=== PATIENT | female | born 1965 | race Caucasian/White ===

== ENCOUNTER 2024-04-26 17:35 | Inpatient (IN) | payer BC, SELFPAY ==
[2024-04-26 13:46] VITALS: BP 114/84
[2024-04-26 14:20] LABS: % Basophils 0.2 % (0-2); % Eosinophils 0.8 % (0-6); % Immature Granulocytes 0.3 % (0-0.5); % Lymphocytes 13.3 % (20.5-51.1); % Monocytes 9.6 % (1.7-9.3); % Neutrophils 75.8 % (42.2-75.2); Absolute Eosinophils 0.1 10^3/uL (0-0.7); Absolute Lymphocytes 1.8 10^3/uL (1.2-3.4); Absolute Monocytes 1.3 10^3/uL (0.1-0.6); Hematocrit 39.5 % (37.0-47.0); Mean Corp Hgb Conc. 32.9 g/dL (33.0-37.0); Mean Corpuscular Hgb 31.3 pg (27.0-31.0); Mean Platelet Volume 8.9 fL (7.4-10.4); Nucleated Red Blood Cells % 0 %; Platelet Count 345 10^3/uL (130-400); Red Blood Cell Count 4.16 10^6/uL (4.20-5.40); Red Cell Dist. Width 12.3 % (11.5-14.5); White Blood Cell Count 13.1 10^3/uL (4.8-10.8)
--- NOTE | 2024-04-26 14:37 | ED.GENMED ---
History of Present Illness
General
Chief Complaint: Abdominal Symptoms
Source: patient
Exam Limitations: none
Time Seen by Provider: 04/26/24 13:52
Nursing documentation reviewed up to this point in time: agreed with
History of Present Illness
History of Present Illness:
Patient is a 58-year-old female with history of microscopic colitis on chronic Imodium for chronic diarrhea presents to the ER now with constipation for the past week. She had intermittent constipation several weeks ago and used mag citrate at the
time which worked but recently over the past 1 week patient has not been able to move her bowels. She tried 2 fleets enemas however is now having increasing abdominal pain. In addition she reports for the past several days she has had a lot of
pain with urination. She reports it is just simple pain but does not feel like burning. It does not feel like UTI. Today she vomited was of brought her here to the ER she did 2 fleets enemas and does not feel like stools in the rectum. She
complains of feeling bloated and having a lot of abdominal discomfort.
Past History
Past History
ED Past Medical History: Other (Anxiety, IBS)
ED Past Surgical History: Cholecystectomy
Social History
Tobacco: Smoker
Alcohol: Occasional
Drug: None
Personal:
Living: with family
Employment: Employed
Family History
Family History: Other (Noncontributory)
Review of Systems
Review of Systems
Allergies reviewed?: Yes
All Other Systems: ROS reviewed and negative except as documented in HPI and ROS
Constitutional: Reports no symptoms; Denies fever, fatigue or chills
Respiratory: Reports no symptoms
Cardiac: Reports no symptoms
ABD/GI: Reports abdominal pain, nausea, vomiting and constipated
: Reports other (pain with urination ); Denies flank pain or urgency
Musculoskeletal: Reports no symptoms
Skin: Reports no symptoms
Neurological: Reports no symptoms
Psychiatric: Reports no symptoms
Phy Exam
General Physical Exam
General Presentation: no apparent distress
General age: appears stated age
General Skin: warm and dry
General Habitus: normal
General Mental: alert
General Hydration: appears well hydrated
Cardiovascular Exam
Cardiovascular Exam: regular rate/rhythm, no murmur and normal peripheral pulses
Gastrointestinal Exam
Gastrointestinal Exam: soft and other (Nonspecific abdominal tenderness)
Neurological Exam
Neurological Exam: alert and oriented x3
Musculoskeletal Exam
Musculoskeletal Exam: full ROM
Skin Exam
Skin Exam: normal color and warm/dry
Psychiatric Exam
Psychiatric Exam: normal mood/affect
Course
Orders/Labs/Results
Orders:
Orders
04/26/24 14:03
IV Insert/Care/Rem.- Treatment PRN
04/26/24 14:12
Complete Blood Count/With Diff Urgent
Comprehensive Metabolic Panel Urgent
Lipase Urgent
04/26/24 14:36
CT Abd/pelvis W Iv Cont Urgent
Comment:
Reason For Exam: abd pain /constipation /pain w/urination vomiting
04/26/24 15:24
0.9% Sodium Chloride 1000 ml [Nss] 1,000 ml IV BOLUS
04/26/24 15:41
Ketorolac [Toradol] 15 mg IV NOW STA
04/26/24 16:29
Urinalysis Reflex To Culture Urgent
Date Specimen was Collected: 04/26/24
Time Specimen was Collected: 14:04
Urine Microscopic Reflex Cult Urgent
04/26/24 16:53
Piperacillin/Tazo 3.375 Gram [Zosyn] 3.375 gram in 50 ml IV NOW
Abnormal Lab Results
04/26/24 04/26/24
14:12 16:29
WBC 13.1 H 10^3/uL
(4.8-10.8)
RBC 4.16 L 10^6/uL
(4.20-5.40)
MCH 31.3 H pg
(27.0-31.0)
MCHC 32.9 L g/dL
(33.0-37.0)
Absolute Neuts (auto) 10.0 H 10^3/uL
(1.4-6.5)
Absolute Monos (auto) 1.3 H 10^3/uL
(0.1-0.6)
Neutrophils % 75.8 H %
(42.2-75.2)
Lymphocytes % 13.3 L %
(20.5-51.1)
Monocytes % 9.6 H %
(1.7-9.3)
Creatinine 0.5 L mg/dL
(0.6-1.0)
Glucose 110 H mg/dl
(70-99)
Alkaline Phosphatase 151 H U/L
(38-126)
Urine Ketones 2+ A
(Negative)
Leukocyte Esterase Rfl Trace A
(Negative)
04/26/24 14:12
04/26/24 14:12
Vital Signs
Initial and Last Documented VS:
Initial Vital Signs
Temp Pulse Resp BP Pulse Ox
98.9 F 79 16 114/84 98
04/26/24 13:46 04/26/24 13:46 04/26/24 13:46 04/26/24 13:46 04/26/24 13:46
Last Documented Vital Signs
Temp Pulse Resp BP Pulse Ox
98.9 F 79 16 114/84 98
04/26/24 13:46 04/26/24 14:00 04/26/24 13:46 04/26/24 13:46 04/26/24 13:46
Tower Watchman consulted with Physician
Tower Watchman consulted with physician?: Yes
Name of Physician Consulted: Noh
MDM/Problems Addressed
Differential Diagnosis Includes:
Not limited to bowel obstruction, diverticulitis, UTI
MDM/Problems Addressed:
Patient is a 50-year-old female who presented with constipation and vomiting. Patient feels abdominal pain back pain also pain/pressure with urination that this does not feel like a UTI. Patient reports she has microscopic colitis and takes daily
Imodium. CAT scan done shows acute complicated sigmoid diverticulitis with adjacent small volume free air consistent with perforation. There is likely adjacent phlegmonous change without discrete abscess or collection
IV antibiotics ordered Pt was initially given Toradol I held off on narcotics because of constipation however she is back in discomfort will give 4 mg of morphine. Case reviewed with colorectal surgery, DR López .
Will admit for IV antibiotics patient is stable with stable vital signs. No fever white count minimally elevated at 13,000 nontachycardic. Patient was initially given Toradol however as discussed with Dr. López will give morphine for pain.
Case discussed admitting hospitalist
Chronic conditions affecting care:
colitis
*Radiology
Radiology exam reviewed: radiology read reviewed
*Pulse Oximetry
Patient hypoxic: no
*Critical Care Note
Total Time (30-74mins, 75-104mins- exclusive of procedures): Not Applicable
Patient Management
Discussion with other providers: Senior Engineering Team Leader (DR López colorectal )
ED Attending Note
-
Portions of this chart may have been created with voice recognition software.� Occasional wrong word or��sound alike� substitutions may have occurred due to the inherent limitations of voice recognition software.
Discharge Plan
Departure
Patient Disposition: Admit
Date of Disposition: 04/26/24
Time of Disposition: 17:11
Admit to: Med/Surg
Admit to doctor: hospitalist
Presentation/result/management discussed w/ accepting MD/DO: Hospitalist
Patient with high blood pressure during this ER visit?: No
Condition: Fair
Covid-19: Not Applicable
Discharge Problem:
Diverticulitis of colon with perforation
Prescriptions:
No Action
multivitamin [Daily Multiple] 1 EACH tablet
1 ea PO DAILY
hyoscyamine sulfate 0.125 MG tablet,disintegrating
0.125 mg PO Q4 PRN (Reason: irritable bowel)
fluoxetine 20 MG capsule
20 mg PO BID
loratadine 10 MG tablet
10 mg PO HS
va-dc-xcsm-FA-herbal cmplx#190 [Vitamin D3 Complete] 1 EACH tablet
1 ea PO DAILY
pantoprazole 40 MG tablet,delayed release (DR/EC)
40 mg PO DAILY Qty: 30 0RF
hyoscyamine sulfate [Levbid] 0.375 MG tablet extended release 12 hr
0.375 mg PO BID Qty: 60 0RF
Referrals:
Anna Tatum PA-C [Family Provider] -
Interventions
Interventions:
*Risk Screen - Suicide Last Done: 04/26/24 13:46
*General Assessment Last Done: 04/26/24 13:46
*Neglect/Abuse Screening Last Done: 04/26/24 13:46
ED- Fall Risk Assessment Last Done: 04/26/24 14:02
CN-Wospdb-Hhixbggpdt Assessment Last Done: 04/26/24 14:02
Discharge Date and Time
Print Language: ISRAELI
[2024-04-26 14:38] LABS: ALT (SGPT) 33 U/L (0-35); AST (SGOT) 26 U/L (14-36); Albumin 4.1 g/dl (3.5-5.0); Alkaline Phosphatase 151 U/L (38-126); Blood Urea Nitrogen 7 mg/dl (7-17); Calcium 9.4 mg/dl (8.4-10.2); Carbon Dioxide 29 mmol/L (22-30); Chloride 101 mmol/L (98-107); Glucose 110 mg/dl (70-99); Lipase 46 U/L (23-300); Potassium 4.2 mmol/L (3.5-5.1); Sodium 139 mmol/L (135-145); Total Bilirubin 0.4 mg/dl (0.2-1.3); Total Protein 6.9 g/dl (6.3-8.2); eGFR > 60.00
[2024-04-26] MEDS: NSS 1000 IV ×2 (15:39→18:41)
[2024-04-26] MEDS: TORADOL 15 MG IV (15:43)
[2024-04-26 15:46] VITALS: BMI 32.7
[2024-04-26 16:40] LABS: Urine Albumin Trace (Neg - Trace); Urine Bilirubin Negative (Negative); Urine Character Clear (Clear); Urine Color Yellow; Urine Glucose Negative (Negative); Urine Ketone 2+ (Negative); Urine Leukocyte Trace (Negative); Urine Nitrite Negative (Negative); Urine Occult Blood Negative (Negative); Urine Urobilinogen Negative (Neg - 1+)
[2024-04-26 16:50] LABS: Urine Red Blood Cell 0-2 /HPF (0-2); Urine White Cell 0-2 /HPF (0-5)
[2024-04-26] MEDS: MORPHINE SULFATE 4 MG IV (17:12)
[2024-04-26] MEDS: ZOSYN 50 IV ×2 (17:15→23:07)
[2024-04-26 17:23] VITALS: BP 120/66
--- NOTE | 2024-04-26 17:40 | HPS.HSE ---
Family Physician
-
Family Physician: Anna Tatum
Chief Complaint
-
feeling bloated and having a lot of abdominal discomfort.
History of Present Illness
HPI
58F HX microscopic colitis on chronic Imodium for chronic diarrhea, HX Diverticulosis seen at ER
- reports intermittent constipation several weeks ago and used mag citrate at the time which worked
- recently over the past 1 week patient has not been able to move her bowels.
- tried 2 fleets enemas however is now having increasing abdominal pain.
- past several days she has had a lot of pain with urination but does not feel like burning.
- Today she vomited was of brought her here to the ER she did 2 fleets enemas and does not feel like stools in the rectum. - complains of feeling bloated and having a lot of abdominal discomfort.
Medical History
Past Medical History
Past Medical History: Reports Psychiatric ((Anxiety)
Additional Past Medical History:
Diverticulosis
HX microscopic colitis on chronic Imodium for chronic diarrhea
IBS
Past Surgical History: Reports Cholecystectomy
Social History
Tobacco: Smoker
Alcohol: Occasional
Living: With Family
Family History
Family History: Not pertinent
Allergies / Home Medications
Allergies reflects when Allergies were last updated in [facility].
Home Medications with original date entered in [facility]
Allergy/Medication List:
Allergies
Allergy/AdvReac Type Severity Reaction Status Date / Time
moxifloxacin [From Avelox] Allergy Severe Hives Verified 04/26/24 13:46
Home Medications
acetaminophen 500 mg tablet (Tylenol Extra Strength) 1,000 mg PO Q6HPRN PRN mild pain 04/26/24
biotin 5,000 mcg chewable tablet 5,000 mcg PO BID 04/26/24
cholestyramine (with sugar) 4 gram powder for susp in a packet 4 g PO BID 04/26/24
loperamide 2 mg capsule 2 mg PO BID 04/26/24
Review of Systems
-
Constitutional: Reports No Symptoms
EENT: Reports No Symptoms
Respiratory: Reports No Symptoms
Cardiac: Reports No Symptoms
Abdomen/GI: Reports See HPI, Abdominal Pain and Vomiting
: Reports No Symptoms
Musculoskeletal: Reports No Symptoms
Skin: Reports No Symptoms
Neurological: Reports No Symptoms
Endocrine: Reports No Symptoms
Hematologic/Lymphatic: Reports No Symptoms
Psych: Reports No Symptoms
Physical Exam
Vital Signs
Vital Signs
Temp Pulse Resp BP Pulse Ox
98.9 F 67 16 120/66 92
04/26/24 13:46 04/26/24 17:35 04/26/24 13:46 04/26/24 17:23 04/26/24 17:30
Physical Exam
General: Well Developed, Well Nourished and No Apparent Distress
HEENT: NormoCephalic, Moist mucous membranes and Atraumatic
Respiratory: Clear
Cardiac: S1/S2 and Regular Rhythm; No Murmur or Rub
GI: Soft, Normal Bowel Sounds and Tender (LLQ, not guarded ); No Organomegaly
Rectal: Deferred by Provider
Musculoskeletal: No Clubbing, No Cyanosis and No Edema
Skin: No Rash
Neuro: Nonfocal/grossly intact
Laboratory Results
-
04/26/24 14:12
04/26/24 14:12
Laboratory Results
Total Bilirubin 0.4 mg/dl (0.2-1.3) 04/26/24 14:12
AST 26 U/L (14-36) 04/26/24 14:12
ALT 33 U/L (0-35) 04/26/24 14:12
Alkaline Phosphatase 151 U/L (38-126) H 04/26/24 14:12
Lipase 46 U/L (23-300) 11/24/24 14:12
Data Reviewed
-
Diagnostic Radiology: Report Reviewed by me
CT Scan: Report Reviewed by me
Lab Data: Labs Reviewed by me
Impression/Plan
-
Reviewed VS: Afebrile BP 115/85
Data
Laboratory Tests
04/26/24
14:12
WBC 13.1 H
Hgb 13.0
Plt Count 345
Creatinine 0.5 L
eGFR > 60.00
04/26/24 CT Abd/pelvis W Iv Cont
Acute complicated sigmoid diverticulitis with adjacent small volume free air consistent with perforation. There is likely adjacent phlegmonous change without discrete abscess or collection.
ASSESSMENT & PLAN
Acute complicated sigmoid diverticulitis
Adjacent small volume free air consistent with perforation
likely adjacent phlegmonous change without discrete abscess or collection
HX diverticulosis by denied HX diverticulitis
- NPO and IVF
- PRN anlgesia
- Empiric Zosyn
- CRS consulted
PMHX:
HX microscopic colitis on chronic Imodium for chronic diarrhea :Hold immodium
HX Anxiety, IBS
DVT Px: SCD
Full code
IP MS
[2024-04-26 18:25] VITALS: BMI 28.0
[2024-04-26 18:33] VITALS: BP 132/69
--- NOTE | 2024-04-26 20:00 | PTCARENOTE ---
This RN resumed care of this pt. This nurse did the admission, when asked if pt was covid positive in last 10 days pt said yes. Pt states she tested positive on 04/23 via home test. Pt also states she retook covid test two times and it was negative
04/25, pt has no symptoms and told admitting doc in ED. This nurse checked with toy assembly supervisor if pt needs to be moved to a private room. Pt remains in semi private, oriented to room and call castellon. Will continue with current plan.
[2024-04-26] MEDS: QUESTRAN PO (20:28)
[2024-04-26] MEDS: DILAUDID 0.5 MG IV (21:44)
[2024-04-26 23:34] VITALS: BP 110/53
[2024-04-27] MEDS: DILAUDID 0.5 MG IV ×5 (02:53→23:08)
[2024-04-27] MEDS: NSS 1000 IV ×2 (06:13→19:55)
[2024-04-27] MEDS: ZOSYN 50 IV ×4 (06:13→23:07)
[2024-04-27] MEDS: TYLENOL 650 MG PO ×2 (06:16→15:16)
[2024-04-27 07:44] VITALS: BP 113/59
[2024-04-27] MEDS: QUESTRAN PO (07:48)
[2024-04-27 08:17] LABS: Hematocrit 36.4 % (37.0-47.0); Hemoglobin 11.6 g/dL (12.0-16.0); Mean Corp Hgb Conc. 31.9 g/dL (33.0-37.0); Mean Corpuscular Hgb 31.4 pg (27.0-31.0); Mean Corpuscular Volume 98.4 fL (81.0-99.0); Mean Platelet Volume 9.2 fL (7.4-10.4); Platelet Count 309 10^3/uL (130-400); Red Cell Dist. Width 12.3 % (11.5-14.5); White Blood Cell Count 12.7 10^3/uL (4.8-10.8)
[2024-04-27 08:50] LABS: Blood Urea Nitrogen 8 mg/dl (7-17); Calcium 8.6 mg/dl (8.4-10.2); Carbon Dioxide 28 mmol/L (22-30); Chloride 100 mmol/L (98-107); Estimated Creatinine Clearance 114 ml/min; Glucose 98 mg/dl (70-99); Potassium 3.8 mmol/L (3.5-5.1); Sodium 138 mmol/L (135-145); eGFR > 60.00
--- NOTE | 2024-04-27 12:21 | CON.CRS ---
Consultation
-
Date/Time Consultation Requested: 04/26/2024, 18:11
Date/Time Consultation Performed: 04/27/2024, 09:30
Requesting Provider: Erendira Giron CRNP
Performing Provider: Jesus Del Angel MD
Reason for Consultation: diveticulitis
Medical History
-
Chief Complaint: abdominal pain
History of Present Illness:
58-year-old female, presents to [facility] on 04/26/2024 complaining of abdominal pain. The patient has had diverticulosis in the past but she has never had an attack of diverticulitis before. She states the pain started about 6 days ago
and over the past 2 days that she had vomiting. She has not been eating much due to the pain. She typically has loose stools and has been on Imodium for chronic diarrhea as well as Questran. She has been feeling quite bloated over the past
several days and has been taking simethicone. She did have some chest pain last night due to the abdominal pain. She also states she has bladder pain associated with the abdominal pain. She had a colonoscopy by Dr. Gruber in [place] about a
month ago but she cannot recall the results. She is not on any blood thinners. She smokes about 10 cigarettes or less a day for the past 40 years. Her prior surgeries include a rib removal, gallbladder surgery, and sinus surgery. Her father
of colon cancer at age 54.
On admission her WBC was 13.1 and is currently 12.7. She has remained afebrile. Her vital signs have been normal. CT of the abdomen and pelvis shows acute complicated sigmoid diverticulitis with adjacent small volume free air consistent with
perforation. There is likely adjacent phlegmon's change without discrete abscess or collection. We have been consulted for further surgical opinion.
Past Medical History
Past Medical History: Psychiatric (anxiety)
Past Surgical History: Cholecystectomy and Other (sinus surgery, rib removal)
Social History
Tobacco: Smoker (10 cigs a day for 40 years)
Alcohol: Occasional
Drug: None
Family History
Family History: Cancer (father of colon cancer at 54 years old)
Allergies / Home Medications
Allergy/AdvReac Type Severity Reaction Status Date / Time
moxifloxacin [From Avelox] Allergy Severe Hives Verified 04/26/24 13:46
�Medication �Instructions �Recorded �Confirmed �Type
acetaminophen 500 mg tablet 1,000 mg PO Q6HPRN PRN mild pain 04/26/24 04/26/24 History
(Tylenol Extra Strength)
biotin 5,000 mcg chewable tablet 5,000 mcg PO BID Supplement 04/26/24 04/26/24 History
cholestyramine (with sugar) 4 gram 4 g PO BID High Cholesterol 04/26/24 04/26/24 History
powder for susp in a packet
loperamide 2 mg capsule 2 mg PO BID Constipation 04/26/24 04/26/24 History
Review of Systems
-
History Source: Patient
Abdomen/GI: Abdominal Pain, Vomiting and Diarrhea
A 10 point review of systems was completed, and was negative except as per HPI.
Physical Exam
Vital Signs
Temp 99.8 F 04/27/24 07:44
Pulse 76 04/27/24 07:44
Resp Rate 18 04/27/24 07:44
Blood pressure 113/59 04/27/24 07:44
SaO2 96 04/27/24 08:00
04/26/24 04/27/24 04/28/24
06:59 06:59 06:59
Actual Weight 90.86 kg
Body Mass Index (BMI) 28.0
Lab Results / Allergies
04/27/24 07:38
04/27/24 07:38
WBC 12.7 10^3/uL (4.8-10.8) H 04/27/24 07:38
Hgb 11.6 g/dL (12.0-16.0) L 04/27/24 07:38
Hct 36.4 % (37.0-47.0) L 04/27/24 07:38
Plt Count 309 10^3/uL (130-400) 04/27/24 07:38
Abs Immat Gran (auto) 0.0 10^3/uL (0-0.05) 04/26/24 14:12
Neutrophils % 75.8 % (42.2-75.2) H 04/26/24 14:12
Allergy/AdvReac Type Severity Reaction Status Date / Time
moxifloxacin [From Avelox] Allergy Severe Hives Verified 04/26/24 13:46
Physical Exam
General: Well Developed, Well Nourished and No Apparent Distress
GI: Soft, Tender (LLQ- mild to moderate) and Distended (mild)
Skin: Warm and Dry
Neuro: AO x 3
Psych: Calm
Data Reviewed
-
CT Scan: Image Personally Visualized and interpreted, Report Reviewed by me and Discussed with Patient
Labs: Labs Reviewed by me, Discussed with Physician and Discussed with Family
Old Records: Reviewed
Assessment / Plan
-
Assessment: 58-year-old female with acute complicated sigmoid diverticulitis, first attack
Plan:
-Remain n.p.o.
-Continue IV antibiotics
-Continue IV fluids
-If she were to worsen she would require a colectomy with colostomy creation. Discussed with patient.
-Will follow
[2024-04-27 15:21] VITALS: BP 138/63
--- NOTE | 2024-04-27 15:43 | W.PN.HOSP.TC ---
Today's Communication/Plan
-
IV AB
Pain control
Blood CX
Assessment / Plan
Assessment / Plan
58-year-old female with abdominal pain and bloating
CT-Acute complicated sigmoid diverticulitis with adjacent small volume free air consistent with perforation. There is likely adjacent phlegmonous change without discrete abscess or collection.
CVS: S1-S2 normal
Chest: CTA B/L
Abdomen: Soft, diffuse tenderness
Extremities: No edema
# Acute complicated sigmoid diverticulitis with perforation and adjacent phlegmonous changes without any abscess or collection.
Continue n.p.o. with IV fluids
Zosyn
Analgesics
Colorectal surgery evaluation appreciated
Blood cultures ordered with fever
# History of microscopic colitis on chronic Imodium for diarrhea. Hold Imodium
# Asthma per chart-stable
# Anxiety
# DVT prophylaxis-add Lovenox
# Full code
D/W RN
Anticipated Discharge: > 48 hours
Subjective/Interval History
-
Date of Service: April 27, 2024
Objective Data
-
Labs:
Laboratory Results
04/27/24
07:38
WBC 12.7 H
Hgb 11.6 L
Hct 36.4 L
Plt Count 309
Sodium 138
Potassium 3.8
Chloride 100
Carbon Dioxide 28
BUN 8
Creatinine 0.6
Glucose 98
Calcium 8.6
Vital Signs:
Vital Signs
Temp Pulse Resp BP Pulse Ox
102.3 F H 79 20 138/63 94
04/27/24 15:21 04/27/24 15:21 04/27/24 15:21 04/27/24 15:21 04/27/24 15:21
I&O
04/26/24 04/27/24 04/28/24
06:59 06:59 06:59
Intake Total 980 / 980
Balance 980 / 980
--- NOTE | 2024-04-27 16:52 | CM ---
program development manager reviewed patient's chart and met with patient and patient lives with her spouse in a 2 story home, with 1st floor set up, patient is independent with adl's and ambulation, no dme, patient drives, home when stable no needs.
PCP: Anna Tatum
Pharmacy: [facility]
Plan; Home no needs.
[2024-04-27] MEDS: LOVENOX 40 MG SC (17:55)
[2024-04-27] MEDS: TORADOL 10 MG IV (19:38)
[2024-04-27] MEDS: QUESTRAN 4 GRAM PO (19:55)
[2024-04-27] MEDS: TYLENOL 1000 MG PO (23:06)
[2024-04-27 23:47] VITALS: BP 109/91
[2024-04-28] MEDS: DILAUDID 1 MG IV ×3 (04:29→16:29)
[2024-04-28] MEDS: ZOSYN 50 IV ×4 (05:57→23:18)
[2024-04-28] MEDS: TYLENOL 1000 MG PO ×4 (05:58→22:32)
--- NOTE | 2024-04-28 06:02 | W.PN.HOSP.TC ---
Today's Communication/Plan
-
cont abx
NPO, diet as per CRS
pain control
antiemetic prn
Assessment / Plan
Assessment / Plan
Physical Exam
General: No acute distress
HEENT: Normocephalic Atraumatic PERRLA
CVS: S1-S2 normal sinus rhythm no murmur
Chest: CTA B/L
Abdomen: Soft, lower quadrant tenderness, decreased bowel sounds
Extremities: No edema
Neuro: AOx3
Psych: Calm
58F Asthma Anxiety microscopic colitis here for diverticulitis with associate abscesses.
CT-Acute complicated sigmoid diverticulitis with adjacent small volume free air consistent with perforation. There is likely adjacent phlegmonous change without discrete abscess or collection.
# Acute complicated sigmoid diverticulitis with perforation and adjacent phlegmonous changes without any abscess or collection.
Continue n.p.o. with IV fluids
Zosyn
Analgesics
prn Antiemetics
Colorectal surgery evaluation appreciated
follow Blood cultures
Repeat CT abd/pelvis 04/28 appreciated:
Re-demonstration of complicated acute sigmoid diverticulitis with slight increase in size of small abscess along the anterior margin of the colon measuring up to 2.4 cm and more organized appearance of phlegmon inferiorly measuring 3.8 cm. Both
these areas did not appear amenable to percutaneous drainage per report.
# History of microscopic colitis on chronic Imodium for diarrhea. Hold Imodium
# Asthma per chart-stable
# Anxiety
# DVT prophylaxis-add Lovenox
# Full code
I spent a total of 45 minutes with the patient or on the floor. More than 50% of this time involved counseling and coordination of care.
Anticipated Discharge: 24 - 48 hours
Subjective/Interval History
-
Date of Service: April 28, 2024
No acute distress resting comfortably in bed. Reports improvement in pain control though remains present. Nausea resolved. Denies Flatus.
Objective Data
-
Labs:
Laboratory Results
04/28/24
06:00
WBC Pending
Hgb Pending
Hct Pending
Plt Count Pending
Sodium Pending
Potassium Pending
Chloride Pending
Carbon Dioxide Pending
BUN Pending
Creatinine Pending
Glucose Pending
Calcium Pending
Vital Signs:
Vital Signs
Temp Pulse Resp BP Pulse Ox
99.0 F 70 18 109/91 95
04/27/24 23:47 04/27/24 23:47 04/27/24 23:47 04/27/24 23:47 04/27/24 23:47
I&O
04/26/24 04/27/24 04/28/24
06:59 06:59 06:59
Intake Total 980 / 980 1060 / 1060
Balance 980 / 980 1060 / 1060
[2024-04-28 07:00] VITALS: BP 127/56
[2024-04-28 07:33] LABS: Hematocrit 34.6 % (37.0-47.0); Hemoglobin 11.2 g/dL (12.0-16.0); Mean Corp Hgb Conc. 32.4 g/dL (33.0-37.0); Mean Corpuscular Hgb 32.1 pg (27.0-31.0); Mean Corpuscular Volume 99.1 fL (81.0-99.0); Mean Platelet Volume 9.3 fL (7.4-10.4); Platelet Count 305 10^3/uL (130-400); Red Blood Cell Count 3.49 10^6/uL (4.20-5.40); Red Cell Dist. Width 12.4 % (11.5-14.5); White Blood Cell Count 13.4 10^3/uL (4.8-10.8)
[2024-04-28 08:09] LABS: Blood Urea Nitrogen 8 mg/dl (7-17); Calcium 8.6 mg/dl (8.4-10.2); Carbon Dioxide 24 mmol/L (22-30); Chloride 101 mmol/L (98-107); Estimated Creatinine Clearance 114 ml/min; Glucose 71 mg/dl (70-99); Sodium 138 mmol/L (135-145); eGFR > 60.00
[2024-04-28] MEDS: DILAUDID 0.5 MG IV ×3 (08:16→20:10)
[2024-04-28] MEDS: QUESTRAN 4 GRAM PO ×2 (08:17→20:04)
[2024-04-28] MEDS: NSS 1000 IV ×2 (10:07→23:19)
--- NOTE | 2024-04-28 10:21 | W.PN.CRS1 ---
Today's Communication / Plan
-
CT abdomen and pelvis
Wound RN for stoma marking
Assessment/Plan
-
Assessment: 58-year-old female with acute complicated sigmoid diverticulitis, first attack
Plan:
-Given pain and rise to white blood cell count of 13.4, along with fever yesterday, will order a CT abdomen and pelvis with p.o. and IV contrast
-Continue IV antibiotics
-Continue IV fluids
-If she were to worsen she would require a colectomy with colostomy creation. Discussed with patient.
-I will have wound RN do a stoma marking should she need surgery
-Will follow
Subjective Data
Subjective Data
Date of Service: April 28, 2024
Patient states she is in a lot of pain. She still feels bloated. She is not having any bowel movements. She is now that hungry. She has occasional nausea.
Objective Data
-
Vital Signs
Temp Pulse Resp BP Pulse Ox
99.0 F 74 16 127/56 93
04/28/24 07:00 04/28/24 07:00 04/28/24 07:00 04/28/24 07:00 04/28/24 07:00
Intake & Output
04/27/24 04/28/24 04/29/24
06:59 06:59 06:59
Intake Total 980 / 980 1060 / 1060
Balance 980 / 980 1060 / 1060
Intake:
IV fluids (Total) 880 / 880 960 / 960
IV piggybacks 100 / 100 100 / 100
Other:
Number of approximated MODERATE 2 2
amounts of urine
Lab Results
04/28/24 06:13
04/28/24 06:13
Physical Exam
-
General: No Acute Distress and AOx3
Abdomen: Soft, Distended (Moderate) and Tender (Mild left lower)
Skin: Warm and Dry
[2024-04-28] MEDS: OMNIPAQUE 50 ML PO (11:02)
--- NOTE | 2024-04-28 14:57 | WOUNDNOTE ---
JONY RN NOTE: Stoma sited patient as requested all quadrants. Assessed lying, sitting and standing, avoided creases and scars. Patient has very large soft distended abdomen. LUQ marked 6.5cm from midline and 8.5cm proximal from umbilical line. LLQ
marked 7.5cm from midline and 2cm distal from umbilical line. RUQ marked 7cm from midline and 9cm proximal from umbilical line. RLQ marked 8cm from midline and 1cm distal from umbilical line. Patient aware that surgeon has final decision on location
of ostomy if needed. Answered all questions and will follow.
[2024-04-28 15:00] VITALS: BP 119/57
--- NOTE | 2024-04-28 16:12 | CM ---
Chart reviewed and plan is to home when stable.
Plan; Home when stable.
[2024-04-28] MEDS: COMPAZINE 5 MG IV (16:36)
[2024-04-28] MEDS: LOVENOX 40 MG SC (17:18)
[2024-04-28 23:04] VITALS: BP 138/86
[2024-04-29] MEDS: DILAUDID 1 MG IV ×5 (00:08→22:04)
[2024-04-29] MEDS: COMPAZINE 5 MG IV (00:13)
--- NOTE | 2024-04-29 04:04 | DOWNTIME ---
There was a [employer] Downtime on 04/29/2024 from 0100 to 04/29/2024 at 0350. Downtime documentation of patient's care, including medication administrations, has been reconciled in the electronic record per guidelines. Refer to the
patient's paper chart under the miscellaneous tab to see printed paper medication records and downtime forms.
[2024-04-29] MEDS: TYLENOL 1000 MG PO ×3 (05:15→17:40)
[2024-04-29] MEDS: ZOSYN 50 IV ×3 (05:15→17:40)
--- NOTE | 2024-04-29 07:10 | W.PN.HOSP.TC ---
Today's Communication/Plan
-
IVF
trial clear liquid diet
pain control
antiemetic prn
abx
Assessment / Plan
Assessment / Plan
Physical Exam
General: No acute distress
HEENT: Normocephalic Atraumatic PERRLA
CVS: S1-S2 normal sinus rhythm no murmur
Chest: CTA B/L
Abdomen: Soft, lower quadrant tenderness, decreased bowel sounds
Extremities: No edema
Neuro: AOx3
Psych: Calm
58F Asthma Anxiety microscopic colitis here for diverticulitis with associate abscesses.
CT-Acute complicated sigmoid diverticulitis with adjacent small volume free air consistent with perforation. There is likely adjacent phlegmonous change without discrete abscess or collection.
# Acute complicated sigmoid diverticulitis with perforation and adjacent phlegmonous changes without any abscess or collection.
Continue IV fluids
trial clear liquid diet as per CRS
Zosyn
Analgesics
prn Antiemetics
Colorectal surgery evaluation appreciated
follow Blood cultures
Repeat CT abd/pelvis 04/28 appreciated:
Re-demonstration of complicated acute sigmoid diverticulitis with slight increase in size of small abscess along the anterior margin of the colon measuring up to 2.4 cm and more organized appearance of phlegmon inferiorly measuring 3.8 cm. Both
these areas did not appear amenable to percutaneous drainage per report.
# History of microscopic colitis on chronic Imodium for diarrhea. Hold Imodium
# Asthma per chart-stable
# Anxiety
# DVT prophylaxis-add Lovenox
# Full code
I spent a total of 45 minutes with the patient or on the floor. More than 50% of this time involved counseling and coordination of care.
Anticipated Discharge: 24 - 48 hours
Subjective/Interval History
-
Date of Service: April 29, 2024
Seen and examined at bedside in no acute distress. Reports overall improvement in symptoms though pain persists, controlled with current pain regimen. Reports small bowel movements. So far tolerating clear liquid diet.
Objective Data
-
Labs:
Laboratory Results
04/29/24
06:00
WBC Pending
Hgb Pending
Hct Pending
Plt Count Pending
Sodium Pending
Potassium Pending
Chloride Pending
Carbon Dioxide Pending
BUN Pending
Creatinine Pending
Glucose Pending
Calcium Pending
Vital Signs:
Vital Signs
Temp Pulse Resp BP Pulse Ox
99.6 F 73 18 138/86 95
04/29/24 05:34 04/28/24 23:04 04/28/24 23:04 04/28/24 23:04 04/28/24 23:04
I&O
04/28/24 04/29/24 04/30/24
06:59 06:59 06:59
Intake Total 1060 / 1060
Balance 1060 / 1060
[2024-04-29 07:34] VITALS: BP 115/61
[2024-04-29 08:28] LABS: Hematocrit 33.6 % (37.0-47.0); Hemoglobin 11.1 g/dL (12.0-16.0); Mean Corpuscular Hgb 32.4 pg (27.0-31.0); Mean Platelet Volume 9.1 fL (7.4-10.4); Platelet Count 315 10^3/uL (130-400); Red Blood Cell Count 3.43 10^6/uL (4.20-5.40); Red Cell Dist. Width 12.1 % (11.5-14.5); White Blood Cell Count 12.5 10^3/uL (4.8-10.8)
[2024-04-29] MEDS: NSS 1000 IV ×2 (09:53→22:04)
--- NOTE | 2024-04-29 10:18 | W.PN.CRS1 ---
Today's Communication / Plan
-
As below
Assessment/Plan
-
58-year-old female with PMH of microscopic colitis (in 2019, s/p course of budesonide), IBS�diarrhea type, smoker who presents for 2 to 3 days of worsening abdominal pain associated with vomiting yesterday, preceding 1 week of constipation after
taking Imodium for a few weeks. WBC 13.1, creatinine 0.5, CT showing acute diverticulitis associated with localized perforation
04/[address] due to pain - diverticulitis with developing collection x2 (anteriorly 2.4 cm, posteriorly 3.8 cm), not IR accessible
Tmax 100.8
WBC 12.5 from 13.4
�Acute diverticulitis with perforation; no indications for acute surgical intervention currently
�Based on repeat CT, likely evolving collections without worsening diverticulitis; would continue nonoperative measures
�Discussed risk of nonoperative measures versus surgery in the acute setting with the patient, including discussion about ostomy creation; patient is amenable to 'what ever is best'
�Okay for clear liquids with IV fluids; if any worsening pain, de-escalate back to NPO
� Continue DVT PPx with Lovenox
�Continue pain control with Tylenol and Dilaudid as needed
� Appreciate hospitalist
Subjective Data
Subjective Data
Date of Service: April 29, 2024
Still having ups and downs, but overall feeling better this a.m. Had an episode of vomit overnight, states it was mostly contrast from the CT scan. Not feeling nauseous this a.m.
Passing little flatus, had a small BM. Voiding.
Objective Data
-
Vital Signs
Temp Pulse Resp BP Pulse Ox
99.3 F 70 18 115/61 100
04/29/24 07:34 04/29/24 07:34 04/29/24 07:34 04/29/24 07:34 04/29/24 07:34
Intake & Output
04/28/24 04/29/24 04/30/24
06:59 06:59 06:59
Intake Total 1060 / 1060
Balance 1060 / 1060
Intake:
IV fluids (Total) 960 / 960
IV piggybacks 100 / 100
Other:
Number of approximated MODERATE 2 6
amounts of urine
Number of approximated LARGE 3
amounts of urine
Number of immeasurable emeses? 1
Lab Results
04/29/24 08:05
Physical Exam
-
General: No Acute Distress and AOx3
HEENT: Grossly Normal
Abdomen: Soft, Non Distended, Tender (Minimally tender in the LLQ), No Guarding and No Rebound
Skin: Warm and Dry
[2024-04-29 11:10] LABS: Blood Urea Nitrogen 4 mg/dl (7-17); Calcium 8.7 mg/dl (8.4-10.2); Carbon Dioxide 22 mmol/L (22-30); Chloride 102 mmol/L (98-107); Estimated Creatinine Clearance 114 ml/min; Glucose 59 mg/dl (70-99); Phosphorus 3.7 mg/dl (2.5-4.5); Potassium 4.5 mmol/L (3.5-5.1); Sodium 137 mmol/L (135-145); eGFR > 60.00
--- NOTE | 2024-04-29 14:50 | CM ---
Chart reviewed and plan is to home when stable.
Plan; Home when stable.
[2024-04-29 15:30] VITALS: BP 136/58
[2024-04-29 16:26] VITALS: BMI 28.0
[2024-04-29] MEDS: LOVENOX 40 MG SC (17:40)
[2024-04-29] MEDS: DILAUDID 0.5 MG IV (17:49)
[2024-04-29 23:10] VITALS: BP 114/48
[2024-04-30] MEDS: TYLENOL 1000 MG PO ×5 (00:44→23:56)
[2024-04-30] MEDS: ZOSYN 50 IV ×4 (00:45→17:21)
[2024-04-30] MEDS: DILAUDID 0.5 MG IV (05:39)
--- NOTE | 2024-04-30 07:30 | W.PN.HOSP.TC ---
Today's Communication/Plan
-
Diet advancement as per CRS
cont pain control prn antiemetic
IV abx to transition to oral Augmentin
possible discharge tomorrow if tolerating/remains stable/continues to improve
Assessment / Plan
Assessment / Plan
Physical Exam
General: No acute distress
HEENT: Normocephalic Atraumatic PERRLA
CVS: S1-S2 normal sinus rhythm no murmur
Chest: CTA B/L
Abdomen: Soft, lower quadrant tenderness, decreased bowel sounds
Extremities: No edema
Neuro: AOx3
Psych: Calm
58F Asthma Anxiety microscopic colitis here for diverticulitis with associate abscesses.
CT-Acute complicated sigmoid diverticulitis with adjacent small volume free air consistent with perforation. There is likely adjacent phlegmonous change without discrete abscess or collection.
# Acute complicated sigmoid diverticulitis with perforation and adjacent phlegmonous changes without any abscess or collection.
Continue IV fluids
trial clear liquid diet to advance to LR by dinnertime as per CRS
Zosyn switched to Augmentin
Analgesics
prn Antiemetics
Colorectal surgery evaluation appreciated
follow Blood cultures NGTD
Repeat CT abd/pelvis 04/28 appreciated:
Re-demonstration of complicated acute sigmoid diverticulitis with slight increase in size of small abscess along the anterior margin of the colon measuring up to 2.4 cm and more organized appearance of phlegmon inferiorly measuring 3.8 cm. Both
these areas did not appear amenable to percutaneous drainage per report.
# History of microscopic colitis on chronic Imodium for diarrhea. Hold Imodium
# Asthma per chart-stable
# Anxiety
# DVT prophylaxis-add Lovenox
# Full code
I spent a total of 40 minutes with the patient or on the floor. More than 50% of this time involved counseling and coordination of care.
Anticipated Discharge: Within 24 hours
Subjective/Interval History
-
Date of Service: April 30, 2024
Overall reports improvement in symptoms. Looking forward to advancement diet Low residue by dinner time. Denies new acute issues.
Objective Data
-
Labs:
Laboratory Results
04/30/24
06:39
WBC Pending
Hgb Pending
Hct Pending
Plt Count Pending
Sodium Pending
Potassium Pending
Chloride Pending
Carbon Dioxide Pending
BUN Pending
Creatinine Pending
Glucose Pending
Calcium Pending
Vital Signs:
Vital Signs
Temp Pulse Resp BP Pulse Ox
98.9 F 62 18 114/48 93
04/29/24 23:10 04/29/24 23:10 04/29/24 23:10 04/29/24 23:10 04/29/24 23:10
I&O
04/29/24 04/30/24 05/01/24
06:59 06:59 06:59
Intake Total 1320 / 1320
Balance 1320 / 1320
[2024-04-30 07:54] LABS: Hematocrit 34.2 % (37.0-47.0); Hemoglobin 11.1 g/dL (12.0-16.0); Mean Corp Hgb Conc. 32.5 g/dL (33.0-37.0); Mean Corpuscular Hgb 31.5 pg (27.0-31.0); Mean Corpuscular Volume 97.2 fL (81.0-99.0); Mean Platelet Volume 9.3 fL (7.4-10.4); Platelet Count 334 10^3/uL (130-400); Red Blood Cell Count 3.52 10^6/uL (4.20-5.40); Red Cell Dist. Width 12.2 % (11.5-14.5); White Blood Cell Count 8.7 10^3/uL (4.8-10.8)
[2024-04-30 08:09] LABS: Blood Urea Nitrogen < 2 mg/dl (7-17); Calcium 8.5 mg/dl (8.4-10.2); Carbon Dioxide 24 mmol/L (22-30); Chloride 103 mmol/L (98-107); Estimated Creatinine Clearance 114 ml/min; Glucose 83 mg/dl (70-99); Magnesium 2.1 mg/dl (1.6-2.3); Potassium 3.8 mmol/L (3.5-5.1); Sodium 140 mmol/L (135-145); eGFR > 60.00
[2024-04-30 08:28] VITALS: BP 137/64
[2024-04-30] MEDS: QUESTRAN 4 GRAM PO ×2 (09:03→19:40)
[2024-04-30] MEDS: NSS 1000 IV (09:04)
--- NOTE | 2024-04-30 11:02 | W.PN.CRS1 ---
Today's Communication / Plan
-
Diet advancement.
Assessment/Plan
-
Diverticultis with developing collections not amenable to IR drainage.
1. afebrile and WBC down to 8.7. Continue antibiotics.
2. tolerated clears. Advance to LRD by evening.
3. potential for discharge tomorrow.
Subjective Data
Subjective Data
Date of Service: April 30, 2024
Less pain.
Tolerated clears.
Objective Data
-
Vital Signs
Temp Pulse Resp BP Pulse Ox
98.1 F 61 16 137/64 92
04/30/24 08:28 04/30/24 08:28 04/30/24 08:28 04/30/24 08:28 04/30/24 08:28
Intake & Output
04/29/24 04/30/24 05/01/24
06:59 06:59 06:59
Intake Total 1320 / 1320
Balance 1320 / 1320
Intake:
Oral fluids 1320 / 1320
Other:
Number of approximated MODERATE 6 2
amounts of urine
Number of approximated LARGE 3
amounts of urine
Number of immeasurable emeses? 1
Lab Results
04/30/24 06:39
04/30/24 06:39
Physical Exam
-
General: No Acute Distress
Chest: Clear
Cardiovascular: Regular Rate & Rhythm
Abdomen: Non Distended and Tender (mild)
[2024-04-30] MEDS: DILAUDID 1 MG IV ×2 (11:43→19:42)
[2024-04-30 15:10] VITALS: BP 150/71
[2024-04-30] MEDS: LOVENOX 40 MG SC (17:21)
[2024-04-30] MEDS: AUGMENTIN 875 MG/125 MG 1 TABLET PO (21:14)
[2024-04-30 23:11] VITALS: BP 141/74
[2024-05-01] MEDS: DILAUDID 1 MG IV
[2024-05-01] MEDS: TYLENOL PO (05:20)
--- NOTE | 2024-05-01 07:08 | W.PN.HOSP.TC ---
Today's Communication/Plan
-
discharge
Assessment / Plan
Assessment / Plan
Physical Exam
General: No acute distress
HEENT: Normocephalic Atraumatic PERRLA
CVS: S1-S2 normal sinus rhythm no murmur
Chest: CTA B/L
Abdomen: Soft, lower quadrant tenderness improved, bowel sounds present
Extremities: No edema
Neuro: AOx3
Psych: Calm
58F Asthma Anxiety microscopic colitis here for diverticulitis with associate abscesses.
CT-Acute complicated sigmoid diverticulitis with adjacent small volume free air consistent with perforation. There is likely adjacent phlegmonous change without discrete abscess or collection.
# Acute complicated sigmoid diverticulitis with perforation and adjacent phlegmonous changes without any abscess or collection.
Continue IV fluids
trial clear liquid diet to advance to LR by dinnertime as per CRS
Zosyn switched to Augmentin planned for 7 more days following discharge
Analgesics
prn Antiemetics
Colorectal surgery evaluation appreciated
follow Blood cultures NGTD
Repeat CT abd/pelvis 04/28 appreciated:
Re-demonstration of complicated acute sigmoid diverticulitis with slight increase in size of small abscess along the anterior margin of the colon measuring up to 2.4 cm and more organized appearance of phlegmon inferiorly measuring 3.8 cm. Both
these areas did not appear amenable to percutaneous drainage per report.
tolerating diet and oral abx, consistently afebrile >48h
# History of microscopic colitis on chronic Imodium for diarrhea. Hold Imodium
# Asthma per chart-stable
# Anxiety
# DVT prophylaxis-add Lovenox
# Full code
medically stable for discharge home with outpatient follow up recommendations
discussed with patient and patient's Rufino
Total Time Preparing Discharge __40 minutes including examination of the patient, summary of the hospital stay, instructions for continuing care to all relevant caregivers; and preparation of discharge records, prescriptions, and referral
forms if necessary.
Anticipated Discharge: Today
Subjective/Interval History
-
Date of Service: May 01, 2024
Reports feeling well, tolerating diet and oral antibiotic. Eager to go home. Denies new acute issues
Objective Data
-
Vital Signs:
Vital Signs
Temp Pulse Resp BP Pulse Ox
97.9 F 64 18 141/74 96
04/30/24 23:11 04/30/24 23:11 04/30/24 23:11 04/30/24 23:11 04/30/24 23:11
I&O
04/30/24 05/01/24 05/02/24
06:59 06:59 06:59
Intake Total 1320 / 1320 480 / 480
Balance 1320 / 1320 480 / 480
[2024-05-01 07:23] VITALS: BP 138/70
[2024-05-01] MEDS: AUGMENTIN 875 MG/125 MG 1 TABLET PO (07:58)
[2024-05-01] MEDS: QUESTRAN 4 GRAM PO (07:58)
--- NOTE | 2024-05-01 09:34 | W.PN.CRS1 ---
Today's Communication / Plan
-
Disposition per hospitalist.
Assessment/Plan
-
Diverticultis with developing collections not amenable to IR drainage.
1. vitals and labs reasonable.
2. tolerating LRD.
3. ok for discharge from surgical perspective on LRD and antibiotics. Follow up with Dr. Del Angel in 2 weeks.
Subjective Data
Subjective Data
Date of Service: May 01, 2024
Admits to mild R sided discomfort.
Tolerating LRD.
Objective Data
-
Vital Signs
Temp Pulse Resp BP Pulse Ox
98.5 F 66 19 138/70 95
05/01/24 07:23 05/01/24 07:23 05/01/24 07:23 05/01/24 07:23 05/01/24 07:23
Intake & Output
04/30/24 05/01/24 05/02/24
06:59 06:59 06:59
Intake Total 1320 / 1320 480 / 480
Balance 1320 / 1320 480 / 480
Intake:
Oral fluids 1320 / 1320 480 / 480
Other:
Number of approximated MODERATE 2 3
amounts of urine
Lab Results
04/30/24 06:39
04/30/24 06:39
Physical Exam
-
General: No Acute Distress
Chest: Clear
Cardiovascular: Regular Rate & Rhythm
Abdomen: Non Distended and Tender (mild R sided)
[2024-05-01] MEDS: TYLENOL 1000 MG PO (11:16)
--- NOTE | 2024-05-01 14:35 | W.DCSUMMARY ---
Discharge Summary
Discharge Data
Date of Admission: 04/26/24
Date of Discharge: 05/01/24
-
Pending Results: Yes
Additional Pending Results:
blood cultures official report
Discharge Plan
-
Patient Disposition: Home (Routine Discharge)
Discharge Diagnosis/Procedures: Acute complicated sigmoid diverticulitis with perforation and adjacent small abscesses not amenable to percutaneous drainage
History of microscopic colitis
Condition: Fair
Diet: Low Residue
Additional Diets: Follow up with colorectal surgeon or primary care provider to determine when safe to advance diet
Activity: As tolerated
Driving Restrictions: avoid driving when using opiate pain meds
Bathing Restrictions: None
Blood Work: Please repeat CBC and BMP with primary care provider in 1 week of discharge
Activity Restrictions/Additional Instructions:
Please follow up with primary care provider in 1 week of discharge and Colorectal surgeon in 2 weeks of discharge.
For diverticulitis with associate small abscess, you've been prescribed Augmentin for 7 more days.
Imodium has been placed on hold as it is currently contraindicated with active diverticulitis infection on treatment with broad spectrum antibiotic. Follow up with Colorectal surgeon or primary care provider to determine when safe to resume, if
necessary to resume, and/or if an alternative agent is required instead.
Oxycodone has been prescribed as needed for moderate severe pain. Avoid driving when taking opiate pain medications such as oxycodone.
Please take medications as prescribed/recommended and follow up with primary care provider and/or other healthcare provider involved in your care for refills and/or further adjustment to your medication regimen as necessary.
Instructions: Low Fiber Diet
Referrals:
Anna Tatum PA-C [Family Provider] - in one week
Jesus Del Angel MD [Active] - in two weeks
Prescriptions:
New
oxycodone 5 mg tablet
5 mg PO BID PRN (Reason: moderate severe pain) Qty: 10 0RF
amoxicillin-pot clavulanate 875-125 mg Tablet
1 tab PO TID 7 Days Qty: 21 0RF
Continued
acetaminophen [Tylenol Extra Strength] 500 mg Tablet
1,000 mg PO Q6HPRN PRN (Reason: mild pain)
cholestyramine (with sugar) 4 gram Powder In Packet
4 g PO BID
biotin 5,000 mcg Tablet,Chewable
5,000 mcg PO BID
Held
loperamide 2 mg Capsule
2 mg PO BID
Hold Instructions: Follow up with colorectal surgeon or primary care provider to determine when safe to resume, if necessary to resume, and/or if an alternative agent is required instead.
Discharge Orders:
Discharge Patient (As Directed); Ordered 05/01/24
Ordered By: Polina Montenegro
Discharge Date and Time
Print Language: THAI
--- NOTE | 2024-05-01 14:37 | CM ---
Chart reviewed and plan is to home when stable, no needs.
Plan; Home today.
[2024-05-01 14:47] VITALS: BP 134/65
== END 2024-05-01 15:08 | disposition home or self-care (01) | DRG 392 ==
LOC: 4 WEST ACU 17:35
PROVIDERS: Nurse Practitioner; Registered Nurse; ADMITTING PHYSICIAN Internal Medicine; ATTENDING PHYSICIAN Internal Medicine; EMERGENCY PHYSICIAN Emergency Medicine; FAMILY PHYSICIAN Physician Assistant; OTHER PHYSICIAN Surgery
DX: K57.20 Diverticulitis of large intestine with perforation and abscess without bleeding (principal); Z87.19 Personal history of other diseases of the digestive system; K58.0 Irritable bowel syndrome with diarrhea; R30.9 Painful micturition, unspecified; F41.9 Anxiety disorder, unspecified; Z90.49 Acquired absence of other specified parts of digestive tract; F17.210 Nicotine dependence, cigarettes, uncomplicated; Z80.0 Family history of malignant neoplasm of digestive organs; E78.00 Pure hypercholesterolemia, unspecified; J45.909 Unspecified asthma, uncomplicated
CPT/HCPCS: 71045; 74177; 80048; 80053; 81003; 81015; 83690; 83735; 84100; 85025; 85027; 86140; 87040; 93005; 96361; 96365; 96375; 99285; 99406; Q9967

== ENCOUNTER 2025-02-02 17:39 | Emergency (ER) | payer BC, SELFPAY ==
[2025-02-02 17:52] VITALS: BP 121/101
[2025-02-02 18:18] VITALS: BP 146/66
--- NOTE | 2025-02-02 18:24 | ED.GENMED ---
History of Present Illness
General
Chief Complaint: Breathing Problem
Source: patient
Time Seen by Provider: 02/02/25 18:09
History of Present Illness
History of Present Illness:
59-year-old female presents to the emergency room complaining of 2 separate issues. First she has been experiencing a cough and some breath past 10 days or so. No improvement with Mucinex. She used her daughter's neb treatment which helped her
sleep little bit the other day but has not used it consistently. Cough is minimally productive. Additionally the patient is complaining of lower abdominal pain, nausea, anorexia and diarrhea. At times she has had just mucus at a time she has had
some bloody mucus in addition to brown watery diarrhea. When her symptoms started she had brown watery diarrhea. Over the past couple days which has been the mucus and occasional blood. Patient has a history of diverticulitis with a contained
perforation. This was treated conservatively. She feels her abdominal symptoms are similar to what she experienced at that time.
Past History
Past History
ED Past Medical History: Other (Anxiety, IBS)
ED Past Surgical History: Cholecystectomy
Social History
Tobacco: Smoker
Alcohol: Occasional
Drug: None
Personal:
Living: with family
Employment: Employed
Family History
Family History: Other (Noncontributory)
Phy Exam
Physical Exam
Physical Exam:
General: Awake, Alert, Oriented X3. No acute distress.
Vitals: Mildly hypoxic in triage,
Head: Atraumatic
Eyes: Pupils equal, EOMI
Throat: Airway intact, no exudates
Neck: Trachea midline
Lungs: Significant expiratory wheezing
Heart: Regular rate, no murmurs
Abd: Soft, tender to palpation bilateral lower abdominal quadrant, No pulsatile mass
Neuro: Nonfocal
Skin: Warm, dry, no rash
Extremities: pulses equal b/l, no edema
Scores
Heart Failure Risk
Heart Failure Risk Score: Not Applicable
Course
Orders/Labs/Results
Orders:
Orders
02/02/25 18:02
Electrocardiogram (*1) Urgent
Reason for Study: Chest Pain
EKG- Treatment ONCE
CR Chest - 2 Views Urgent
Comment:
Reason For Exam: cough, chest pain
02/02/25 18:22
0.9% Sodium Chloride 1000 ml [Nss] 1,000 ml IV BOLUS
Ipratropium/Albuterol Sulfate [Duoneb] 3 ml INH R NOW ONE
02/02/25 18:23
CT Abd/Pel (IV only)-DH only Urgent
Comment:
Reason For Exam: lower abd tenderness, loose stool
02/02/25 18:24
Ipratropium/Albuterol Sulfate [Duoneb] 3 ml INH R NOW STA
02/02/25 18:27
COVID-19 Antigen Urgent
Source: Nasal Swab
Complete Blood Count/With Diff Urgent
Comprehensive Metabolic Panel Urgent
Influenza A+B Rapid Molecular Urgent
STANISLAW Source: Nasal Swab
Specimen Description:
02/02/25 21:50
Amoxicillin 875 mg/Clav 125 mg [Augmentin 875 mg/125 mg] 1 tablet PO NOW STA
02/02/25 21:51
Prednisone [Deltasone] 50 mg PO NOW STA
Abnormal Lab Results
02/02/25
18:27
MCH 32.3 H pg
(27.0-31.0)
Absolute Neuts (auto) 6.7 H 10^3/uL
(1.4-6.5)
Absolute Monos (auto) 0.9 H 10^3/uL
(0.1-0.6)
BUN 5 L mg/dl
(7-17)
Glucose 112 H mg/dl
(70-99)
02/02/25 18:27
02/02/25 18:27
Vital Signs
Initial and Last Documented VS:
Initial Vital Signs
Pulse Resp BP Pulse Ox
96 26 121/101 88
02/02/25 17:52 02/02/25 17:52 02/02/25 17:52 02/02/25 17:52
Last Documented Vital Signs
Pulse Resp BP Pulse Ox
85 17 128/64 93
02/02/25 21:45 02/02/25 21:45 02/02/25 21:00 02/02/25 21:45
MDM/Problems Addressed
Differential Diagnosis Includes:
From a respiratory standpoint differential includes viral bronchitis, asthma exacerbation, pneumonia.
From a abdominal pain diarrhea standpoint the differential clues diverticulitis, viral gastroenteritis, C. difficile, colitis
MDM/Problems Addressed:
Chest x-ray shows no acute abnormality. Patient had significant improvement with 2 DuoNebs. Will start her on oral prednisone. Will prescribe albuterol nebs for her to use with her nebulizer machine at home.
Patient's CT shows simple 1 complicated diverticulitis. Will treat this with Augmentin. Augmentin will cover any potential respiratory pathogens though her chest x-ray shows no pneumonia.
Chronic conditions affecting care: Other (Diverticulitis)
*Radiology
Radiology exam reviewed: preliminary read by ED provider (No acute abnormality my review of the patient's chest x-ray) and radiology read reviewed
*Pulse Oximetry
SaO2: 88
Oxygen Mode of Delivery: Room air
Patient hypoxic: yes
*EKG
Interpreted by ED Provider?: Yes
Interpretation: abnormal
Comparison EKG: no changes
Heart Rate: 89
Rate: normal
Rhythm: sinus
Interval: normal interval
QRS Pattern: normal QRS
Ischemia: T-wave inversion (Anterior lateral lead)
*[employer] Interpretation
Rate: normal
Rhythm: sinus
*Critical Care Note
Total Time (30-74mins, 75-104mins- exclusive of procedures): Not Applicable
ED Attending Note
-
Portions of this chart may have been created with voice recognition software.� Occasional wrong word or��sound alike� substitutions may have occurred due to the inherent limitations of voice recognition software.
Discharge Plan
Departure
Patient Disposition: Home (Routine Discharge)
Date of Disposition: 02/02/25
Time of Disposition: 21:51
Patient with high blood pressure during this ER visit?: No
Condition: Good
Discharge Problem:
Diverticulitis, Asthma exacerbation, URI, acute
Instructions: Asthma, Adult (DC), Diverticulitis (DC)
Prescriptions:
New
amoxicillin-pot clavulanate 875-125 mg tablet
1 tab PO BID Qty: 14 0RF
albuterol sulfate 2.5 mg /3 mL (0.083 %) solution for nebulization
2.5 mg inhalation Q6H PRN (Reason: shortness of breath or wheezing) Qty: 90 0RF
prednisone 20 mg tablet
40 mg PO DAILY Qty: 8 0RF
No Action
loperamide 2 mg Capsule
2 mg PO BID
acetaminophen [Tylenol Extra Strength] 500 mg Tablet
1,000 mg PO Q6HPRN PRN (Reason: mild pain)
cholestyramine (with sugar) 4 gram Powder In Packet
4 g PO BID
biotin 5,000 mcg Tablet,Chewable
5,000 mcg PO BID
oxycodone 5 mg tablet
5 mg PO BID PRN (Reason: moderate severe pain) Qty: 10 0RF
amoxicillin-pot clavulanate 875-125 mg Tablet
1 tab PO TID 7 Days Qty: 21 0RF
Referrals:
Eusebio López MD [Active, [facility]]
David Dunn MD [Family Provider, Family Practice]
Activity Restrictions/Additional Instructions:
Your CAT scan shows mild diverticulitis. I have prescribed Augmentin for you to take twice a day for 7 days. You also have an asthma exacerbation perhaps from a viral upper respiratory infection. I have sent a prescription for albuterol nebulizer
solution which you should take every 6 hours as needed for wheezing. I also sent a prescription for prednisone which she should take for the next 4 days as well
Interventions
Interventions:
*Risk Screen - Suicide Last Done: 02/02/25 18:01
*General Assessment Last Done: 02/02/25 18:14
*Neglect/Abuse Screening Last Done: 02/02/25 18:01
*ED- Fall Risk Assessment Last Done: 02/02/25 18:14
*ED COVID-19 Vaccine History Last Done: 02/02/25 18:14
*Nursing Disposition Last Done: 02/02/25 22:03
ED- Cardiac Assessment Last Done: 02/02/25 18:14
ED- Pulmonary Assessment Last Done: 02/02/25 18:14
Discharge Date and Time
Discharge Date/Time: 02/02/25 22:04
Print Language: [email or web address]
[2025-02-02] MEDS: DUONEB 3 ML INH ×2 (18:28→18:32)
[2025-02-02] MEDS: NSS 1000 IV (18:31)
[2025-02-02 18:38] LABS: Hematocrit 40.8 % (37.0-47.0); Hemoglobin 13.8 g/dL (12.0-16.0); Mean Corp Hgb Conc. 33.8 g/dL (33.0-37.0); Mean Corpuscular Volume 95.6 fL (81.0-99.0); Nucleated Red Blood Cells % 0 %; Platelet Count 277 10^3/uL (130-400); Red Cell Dist. Width 13.1 % (11.5-14.5)
[2025-02-02 18:54] LABS: ALT (SGPT) 22 U/L (0-35); AST (SGOT) 24 U/L (14-36); Albumin 4.6 g/dl (3.5-5.0); Alkaline Phosphatase 108 U/L (38-126); Blood Urea Nitrogen 5 mg/dl (7-17); Calcium 9.8 mg/dl (8.4-10.2); Carbon Dioxide 25 mmol/L (22-30); Chloride 104 mmol/L (98-107); Glucose 112 mg/dl (70-99); Potassium 3.9 mmol/L (3.5-5.1); Sodium 138 mmol/L (135-145); Total Protein 7.4 g/dl (6.3-8.2); eGFR > 60.00
[2025-02-02 19:00] VITALS: BP 119/84
[2025-02-02 19:23] LABS: COVID-19 Antigen Negative (Negative)
[2025-02-02 21:00] VITALS: BP 128/64
[2025-02-02] MEDS: AUGMENTIN 875 MG/125 MG 1 TABLET PO (21:54)
[2025-02-02] MEDS: DELTASONE 50 MG PO (21:55)
== END 2025-02-02 22:04 | disposition home or self-care (01) ==
LOC: EMR 17:39
PROVIDERS: EMERGENCY PHYSICIAN Emergency Medicine; FAMILY PHYSICIAN Family Medicine
DX: K57.32 Diverticulitis of large intestine without perforation or abscess without bleeding (principal); J45.901 Unspecified asthma with (acute) exacerbation; J06.9 Acute upper respiratory infection, unspecified; F17.200 Nicotine dependence, unspecified, uncomplicated; Z90.49 Acquired absence of other specified parts of digestive tract
CPT/HCPCS: 99285; 94640; 96360; 71046; 74177; 80053; 85025; 87502; 87811; 93005; Q9967